=== PATIENT | male | born 1990 | race Caucasian/White ===

== ENCOUNTER 2021-06-18 09:12 | Emergency (ER) | payer BC, OTHER ==
[~2021-06-18] VITALS: Ht 190.5 cm; Wt 89.0 kg
--- NOTE | 2021-06-18 10:00 | PHYS DOC ---
Past History Past Surgical History: Appendectomy, Other Alcohol Use: None General Adult EDM: Chief Complaint: BLOOD IN URINE HPI: HPI: 30-year-old male presents with hematuria. The patient woke up this morning had left-sided flank pain. He urinated and had elías blood with some clots. He decided to come in for evaluation. Patient recently had surgery for left tibial plateau fracture. He denies fever or chills. No history of kidney stones. He has no other complaints this time. Review of Systems: Review of Systems: Constitutional: Denies fever or chills Eyes: Denies change in visual acuity HENT: Denies nasal congestion or sore throat Respiratory: Denies cough or shortness of breath Cardiovascular: Denies chest pain or edema GI: Denies abdominal pain, nausea, vomiting, bloody stools or diarrhea : Hematuria Musculoskeletal: Left flank pain. Denies back pain or joint pain Integument: Denies rash Neurologic: Denies headache, focal weakness or sensory changes Endocrine: Denies polyuria or polydipsia Lymphatic: Denies swollen glands Psychiatric: Denies depression or anxiety Physical Exam: PE: Constitutional: Well developed, well nourished, no acute distress, non-toxic appearance. [] HENT: Normocephalic, atraumatic, bilateral external ears normal, oropharynx moist, no oral exudates, nose normal. [] Eyes: PERRLA, EOMI, conjunctiva normal, no discharge. [] Neck: Normal range of motion, no tenderness, supple, no stridor. [] Cardiovascular: Heart rate regular rhythm, no murmur [] Lungs & Thorax: Bilateral breath sounds clear to auscultation [] Abdomen: Bowel sounds normal, soft, no tenderness, no masses, no pulsatile masses. [] Skin: Warm, dry, no erythema, no rash. [] Back: No tenderness, left CVA tenderness. [] Extremities: No tenderness, no cyanosis, no clubbing, ROM intact, no edema. Left knee in immobilizer brace. [] Neurologic: Alert and oriented X 3, normal motor function, normal sensory function, no focal deficits noted. [] Psychologic: Affect normal, judgement normal, mood normal. [] Current Patient Data: Vital Signs: Vital Signs Date Time Temp Pulse Resp B/P (MAP) Pulse Ox O2 Delivery O2 Flow Rate FiO2 06/18/21 09:28 98.0 114 16 100 Room Air EKG: EKG: [] Radiology/Procedures: Radiology/Procedures: [] Impressions: EXAMINATION: CT ABDOMEN+PELVIS WO CLINICAL HISTORY: Right flank pain, hematuria. TECHNIQUE: Imaging of the abdomen and pelvis was performed without intravenous contrast using standard technique, scanning from just above the dome of the diaphragm to the symphysis pubis. Unenhanced imaging is limited for the evaluation of some intra-abdominal and pelvic pathology. CT Dose Reduction Employed: One or more of the following individualized dose reduction techniques were utilized for this examination: 1. Automated exposure control 2. Adjustment of the mA and/or kV according to patient size 3. Use of iterative reconstruction technique. COMPARISON: None FINDINGS: Visualized heart and lungs unremarkable. Liver, gallbladder, pancreas, spleen, and adrenal glands unremarkable. Bilateral duplicated urinary collecting systems. 2 mm calculus at the union of the 2 left ureters which occurs proximally. Mild associated hydronephrosis predominantly involving the lower pole moiety. Additional punctate nonobstructive calculus in the midpole of the left kidney and near the inferior portion of the upper pole moiety. No right-sided urolithiasis or obstructive uropathy. Minimally filled urinary bladder suboptimally evaluated. No dilated bowel. Probable appendectomy. No abdominal aortic or iliac artery aneurysm. No evidence of acute osseous abnormality. IMPRESSION: Bilateral duplicated urinary collecting systems with 2 mm calculus at the union of the 2 left ureters and mild hydronephrosis as described. No right-sided urolithiasis or obstructive uropathy. Electronically signed by: Elieser Goodman DO (06/18/2021 10:06 AM) [id number] DICTATED AND SIGNED BY: ELIESER GOODMAN DO DATE: 06/18/21 0957 CC: MARICRUZ BARKLEY DO; BRITTANY BRODERICK ~ Heart Score: C/O Chest Pain: N/A Risk Factors: Risk Factors: DM, Current or recent (<one month) smoker, HTN, HLP, family history of CAD, obesity. Risk Scores: Score 0 - 3: 2.5% MACE over next 6 weeks - Discharge Home Score 4 - 6: 20.3% MACE over next 6 weeks - Admit for Clinical Observation Score 7 - 10: 72.7% MACE over next 6 weeks - Early Invasive Strategies Course & Med Decision Making: Course & Med Decision Making Pertinent Labs and Imaging studies reviewed. (See chart for details) The patient's labs are unremarkable. His urinalysis is significant for blood. He does not appear to be infected. CT scan does show a 2 mm calculus and mild hydronephrosis. See official read for more details. This should be able to pass. I will place him on Flomax for up to 14 days. The patient is already on pain medication. He will follow-up with urology if needed. He is stable for discharge at this time. [] Dragon Disclaimer: Dragon Disclaimer: This electronic medical record was generated, in whole or in part, using a voice recognition dictation system. Departure Departure: Impression: Primary Impression: Ureterolithiasis Additional Impression: Hematuria Disposition: HOME / SELF CARE / HOMELESS Condition: STABLE Referrals: BRITTANY BRODERICK (PCP) Patient Instructions: Kidney Stones, [id number] Scripts Tamsulosin Hcl (FLOMAX) 0.4 Mg Cap.er.24h 1 CAP PO DAILY for kidney stone for 14 Days, #14 CAP 3 Refills Prov: MARICRUZ BARKLEY DO 06/18/21 MARICRUZ BARKLEY DO Jun 18, 2021 10:00
--- NOTE | 2021-06-18 10:09 | RAD ---
EXAMINATION: CT ABDOMEN+PELVIS WO CLINICAL HISTORY: Right flank pain, hematuria. TECHNIQUE: Imaging of the abdomen and pelvis was performed without intravenous contrast using standar d technique, scanning from just above the dome of the diaphragm to the symphysis pubis. Unenhanced i maging is limited for the evaluation of some intra-abdominal and pelvic pathology. CT Dose Reduction Employed: One or more of the following individualized dose reduction techniques wer e utilized for this examination: 1. Automated exposure control 2. Adjustment of the mA and/or kV ac cording to patient size 3. Use of iterative reconstruction technique. COMPARISON: None FINDINGS: Visualized heart and lungs unremarkable. Liver, gallbladder, pancreas, spleen, and adrenal glands unremarkable. Bilateral duplicated urinary collecting systems. 2 mm calculus at the union of the 2 left ureters whi ch occurs proximally. Mild associated hydronephrosis predominantly involving the lower pole moiety. A dditional punctate nonobstructive calculus in the midpole of the left kidney and near the inferior po rtion of the upper pole moiety. No right-sided urolithiasis or obstructive uropathy. Minimally filled urinary bladder suboptimally evaluated. No dilated bowel. Probable appendectomy. No abdominal aortic or iliac artery aneurysm. No evidence of acute osseous abnormality. IMPRESSION: Bilateral duplicated urinary collecting systems with 2 mm calculus at the union of the 2 left ureters and mild hydronephrosis as described. No right-sided urolithiasis or obstructive uropathy. Electronically signed by: Elieser Whitney DO (06/18/2021 10:06 AM) [id number]
[2021-06-18] MEDS ORDERED: IV NORMAL SALINE 1,000ML 1,000 ML IV ONE (10:30)
[2021-06-18 10:53] LABS: BASO % 1 % (0-3); EOS # 0.1 x10^3/uL (0.0-0.7); EOS % 1 % (0-3); HEMATOCRIT 40.2 % (39.0-53.0); HEMOGLOBIN 13.7 g/dL (13.0-17.5); LYMPH % 20 % (24-48); MEAN CORPUSCULAR HEMOGLOBIN 30 pg (25-35); MEAN CORPUSCULAR HGB CONC 34 g/dL (31-37); MEAN CORPUSCULAR VOLUME 87 fL (79-100); MONO # 0.4 x10^3/uL (0.0-1.1); MONO % 7 % (0-9); NEUT # 3.5 x10^3uL (1.8-7.7); NEUT % 71 % (31-73); PLATELET COUNT 484 x10^3/uL (140-400); RED BLOOD COUNT 4.63 x10^6/uL (4.30-5.70); RED CELL DISTRIBUTION WIDTH 13.3 % (11.5-14.5); WHITE BLOOD COUNT 4.9 x10^3/uL (4.0-11.0)
[2021-06-18 11:04] LABS: BACTERIA,URINE 0 /HPF (0-FEW); CLARITY,URINE BLOODY; COLOR,URINE RED; RBC,URINE TNTC /HPF (0-2)
[2021-06-18 11:04] LABS: CALCIUM 9.7 mg/dL (8.5-10.1); GFR 88.3; POTASSIUM 3.9 mmol/L (3.5-5.1)
[2021-06-18 11:10] LABS: ALBUMIN 4.8 g/dL (3.4-5.0); ALBUMIN/GLOBULIN RATIO 1.5 (1.0-1.7); TOTAL BILIRUBIN 0.6 mg/dL (0.2-1.0); TOTAL PROTEIN 7.9 g/dL (6.4-8.2)
[2021-06-18] MEDS ORDERED: TAMS0.4C97 PO (11:25)
[2021-06-18 11:30] VITALS: BP 127/73
== END 2021-06-18 11:45 | disposition home or self-care (01) ==
LOC: ER 09:12
DX: N13.2 Hydronephrosis with renal and ureteral calculous obstruction (principal); Z90.89 Acquired absence of other organs
CPT/HCPCS: 36415; 74176; 80053; 81001; 85025; 87086; 87147; 96360; 99284; J7030